=== PATIENT | male | born 1950 | race American Indian/Alaskan Native ===

== ENCOUNTER 2018-04-05 21:04 | Emergency (ER) | payer MEDICARE ==
[2018-04-05 21:18] VITALS: BMI 21.3
[2018-04-05 22:02] VITALS: BP 144/90; PULSE 89; RESP 16; TEMP 98.2; O2SAT 100
--- NOTE | 2018-04-05 22:17 | ED PDOC ---
Arrival/HPI - General Chief Complaint: GI Problem Time Seen by Provider: 04/05/18 21:12 Historian: Patient - History of Present Illness Narrative History of Present Illness (Text): 04/05/18 22:17 Carmine Hester Jr is a 67 year old male, whose past medical history includes diabetes, who presents to the ED for constipation. Patient states he was unable to pass stool anf felt rectal discomfort when attempted to defecate. Patient took Magnesium Citrate earlier and while here in the ED had spontaneous evacuation of stool with dramatic relief. Patient denies any history of abdominal pain, chest pain, or any other complaints. Patient states he feels 100% better. Symptom Onset: Gradual Symptom Course: Unchanged Activities at Onset: Light Context: Home Past Medical History - Provider Review Nursing Documentation Reviewed: Yes - Cardiac Hx Cardiac Disorders: Yes Hx Hypertension: Yes - Pulmonary Hx Respiratory Disorders: No - Endocrine/Metabolic Hx Endocrine Disorders: Yes Hx Diabetes Mellitus Type 2: Yes - Psychiatric Hx Substance Use: No Family/Social History - Physician Review Nursing Documentation Reviewed: Yes Family/Social History: Unknown Family HX Smoking Status: Never Smoked Hx Alcohol Use: No Hx Substance Use: No Allergies/Home Meds Allergies/Adverse Reactions: Allergies No Known Allergies Allergy (Verified 04/05/18 21:18) Home Medications: Home Meds Medication Instructions Recorded Confirmed RX: No Known Home Med 04/05/18 04/05/18 Review of Systems - Physician Review All systems were reviewed & negative as marked: Yes - Review of Systems Constitutional: Normal. absent: Fevers Eyes: Normal ENT: Normal Respiratory: Normal. absent: SOB, Cough Cardiovascular: Normal. absent: Chest Pain Gastrointestinal: Constipation. absent: Abdominal Pain, Diarrhea, Nausea, Vomiting Genitourinary Male: Normal. absent: Dysuria, Frequency, Hematuria, Urinary Output Changes Musculoskeletal: Normal. absent: Back Pain, Neck Pain Skin: Normal. absent: Rash Neurological: Normal. absent: Headache, Dizziness Endocrine: Normal Hemo/Lymphatic: Normal Psychiatric: Normal Physical Exam Vital Signs Reviewed: Yes Vital Signs Temp Pulse Resp BP Pulse Ox 04/05/18 21:04 98.2 F 89 16 144/90 100 Temperature: Afebrile Blood Pressure: Normal Pulse: Regular Respiratory Rate: Normal Appearance: Positive for: Well-Appearing, Non-Toxic, Comfortable Pain Distress: None Mental Status: Positive for: Alert and Oriented X 3 - Systems Exam Head: Present: Atraumatic, Normocephalic Pupils: Present: PERRL Extroacular Muscles: Present: EOMI Conjunctiva: Present: Normal Mouth: Present: Moist Mucous Membranes Neck: Present: Normal Range of Motion Respiratory/Chest: Present: Clear to Auscultation, Good Air Exchange. No: Respiratory Distress, Accessory Muscle Use Cardiovascular: Present: Regular Rate and Rhythm, Normal S1, S2. No: Murmurs Abdomen: No: Tenderness, Distention, Peritoneal Signs Rectal: Present: Normal Rectal Tone. No: Rectal Tenderness, Hemorrhoids Back: Present: Normal Inspection Upper Extremity: Present: Normal Inspection. No: Cyanosis, Edema Lower Extremity: Present: Normal Inspection. No: Edema Neurological: Present: GCS=15, CN II-XII Intact, Speech Normal Skin: Present: Warm, Dry, Normal Color. No: Rashes Psychiatric: Present: Alert, Oriented x 3, Normal Insight, Normal Concentration Medical Decision Making ED Course and Treatment: 04/05/18 22:17 Impression: 67 year old male complaining of rectal discomfort secondary to constipation. Plan: -- Reassess and disposition. Progress Notes: Reviewed EKG, NSR at 91 bpm. RBBB. No acute changes. Pt had spontaneous evacuation of stool while in ED and reports dramatic relief of symptoms. Pt states he feels 100% better. Pt is well-appearing in no acute distress. Discussed plan for discharge with pt, who verbalizes understanding. Pt stable for discharge home. Pt instructed to follow-up with PMD/clinic this week or to return to the ED if he develops any new/worsening symptoms. - EKG Interpretation Interpreted by ED Physician: Yes Type: 12 lead EKG - Scribe Statement The provider has reviewed the documentation as recorded by the Scribata Perera All medical record entries made by the Scribe were at my direction and personally dictated by me. I have reviewed the chart and agree that the record accurately reflects my personal performance of the history, physical exam, medical decision making, and the department course for this patient. I have also personally directed, reviewed, and agree with the discharge instructions and disposition. Disposition/Present on Arrival - Present on Arrival Any Indicators Present on Arrival: No History of DVT/PE: No History of Uncontrolled Diabetes: No Urinary Catheter: No History of Decub. Ulcer: No History Surgical Site Infection Following: None - Disposition Have Diagnosis and Disposition been Completed?: Yes Diagnosis: Constipation Disposition: HOME/ ROUTINE Disposition Time: 22:21 Patient Plan: Discharge Condition: GOOD Discharge Instructions (ExitCare): Constipation, Adult (DC) Additional Instructions: Drink plenty of liquids/maintain high fiber diet/May take Miralax as directed/follow up with your doctor this week Referrals: Rosalina Foster [Primary Care Provider] - Follow up with primary Forms: [employer] (Mongolian)
--- NOTE | 2018-04-06 10:23 | CARD ---
APPROVED REPORT Date of service: 04/05/2018 EKG Measurement Heart [id number] <Conclusion> Normal sinus rhythm Possible Left atrial enlargement Right bundle branch block Abnormal ECG
== END 2018-04-05 22:35 | disposition home or self-care (01) ==
LOC: ED 21:04
DX: K59.00 Constipation, unspecified (principal); E11.9 Type 2 diabetes mellitus without complications; I10 Essential (primary) hypertension